=== PATIENT | female | born 1980 | race Caucasian/White ===

== ENCOUNTER 2018-09-20 19:56 | Emergency (ER) | payer OTHER ==
[~2018-09-20] VITALS: Ht 165.1 cm; Wt 90.7 kg
[2018-09-20] MEDS ORDERED: IV NORMAL SALINE 1000ML BAG 1,000 ML IV SCH (20:13)
[2018-09-20] MEDS ORDERED: ADENOSINE 6 MG/2 ML VIAL. IV ONE ×2 (20:13→20:45)
[2018-09-20] MEDS ORDERED: IV NORMAL SALINE 1000ML BAG 1,000 ML IV ONE (20:20)
[2018-09-20 20:24] LABS: BASO # 0.1 x10^3/uL (0.0-0.2); BASO % 1 % (0-3); EOS # 0.2 x10^3/uL (0.0-0.7); EOS % 2 % (0-3); HEMOGLOBIN 12.4 g/dL (12.0-15.5); LYMPH # 1.8 x10^3/uL (1.0-4.8); LYMPH % 21 % (24-48); MEAN CORPUSCULAR HEMOGLOBIN 29 pg (25-35); MEAN CORPUSCULAR HGB CONC 33 g/dL (31-37); MEAN CORPUSCULAR VOLUME 88 fL (79-100); MONO # 0.4 x10^3/uL (0.0-1.1); MONO % 4 % (0-9); NEUT # 6.3 x10^3uL (1.8-7.7); NEUT % 72 % (31-73); PLATELET COUNT 299 x10^3/uL (140-400); RED BLOOD COUNT 4.33 x10^6/uL (3.50-5.40); RED CELL DISTRIBUTION WIDTH 14.2 % (11.5-14.5); WHITE BLOOD COUNT 8.7 x10^3/uL (4.0-11.0)
[2018-09-20 20:34] LABS: CALCIUM 9.1 mg/dL (8.5-10.1); CREATININE 0.8 mg/dL (0.6-1.0); GFR 79.4; POTASSIUM 4.6 mmol/L (3.5-5.1)
[2018-09-20 20:41] LABS: ALBUMIN 3.9 g/dL (3.4-5.0); ALBUMIN/GLOBULIN RATIO 1.1 (1.0-1.7); MAGNESIUM 2.1 mg/dL (1.8-2.4); TOTAL BILIRUBIN 0.2 mg/dL (0.2-1.0); TOTAL PROTEIN 7.4 g/dL (6.4-8.2)
--- NOTE | 2018-09-20 21:58 | PHYS DOC ---
Past Medical History Past Medical History: Other Additional Past Medical Histor: SVT Alcohol Use: None Drug Use: None Social History Narrative: HX METH USE Adult General Chief Complaint Chief Complaint: RAPID HEART RATE HPI HPI Patient is a 38-year-old female who presents via EMS from longterm with report of SVT. Patient was noted to longterm to have rapid heart rate and was given a dose of metoprolol and when heart rate did not respond, she was given a second dose of her metoprolol. Patient's heart rate has not improved but blood pressure had dropped to the 70s systolic. EMS had arrived and did give patient one dose of Adenocard as well as IV fluids. Patient did not convert with the Adenocard and due to symptoms that patient suffered from the Adenocard had refused a second dose by EMS. Upon arrival, patient does admit to feeling a little bit short of breath and lightheaded. She denies any chest pain. Review of Systems Review of Systems Constitutional: Denies fever or chills [] Respiratory: Admits to shortness of breath [] Cardiovascular: Positive palpitations[] GI: Denies abdominal pain, nausea, vomiting, bloody stools or diarrhea [] Integument: Denies rash or skin lesions [] Neurologic: Denies headache, focal weakness or sensory changes [] All other systems were reviewed and found to be within normal limits, except as documented in this note. Current Medications Current Medications Current Medications Medications (Trade) Dose Ordered Sig/Jethro Start Time Stop Time Status Last Admin Dose Admin Adenosine (Adenocard) 12 mg 1X ONCE 09/20/18 20:45 09/20/18 20:46 DC 09/20/18 20:27 12 MG Sodium Chloride 1,000 ml @ 1,000 mls/hr 1X ONCE 09/20/18 20:20 09/20/18 21:19 DC 09/20/18 20:20 1,000 MLS/HR Allergies Allergies Allergies Coded Allergies Type Severity Reaction Last Updated Verified Penicillins Allergy Intermediate HIVES 09/20/18 Yes Physical Exam Physical Exam Constitutional: Well developed, well nourished, no acute distress, non-toxic appearance. [] HENT: Normocephalic, atraumatic, bilateral external ears normal, oropharynx moist, no oral exudates, nose normal. [] Eyes: PERRLA, EOMI, conjunctiva normal, no discharge. [] Neck: Normal range of motion, no tenderness, supple, no stridor. [] Cardiovascular: Markedly tachycardic rate with regular rhythm[] Lungs & Thorax: Bilateral breath sounds clear to auscultation [] Abdomen: Bowel sounds normal, soft, no tenderness. [] Skin: Warm, dry, no erythema, no rash. [] Extremities: No tenderness, no cyanosis, no clubbing, ROM intact, no edema. [] Neurologic: Alert and oriented X 3, no focal deficits noted. [] Current Patient Data Vital Signs Vital Signs Date Time Temp Pulse Resp B/P (MAP) Pulse Ox O2 Delivery O2 Flow Rate FiO2 09/20/18 21:06 88 12 86/66 (73) 98 Nasal Cannula 2.0 09/20/18 19:56 98.2 98.2 Lab Values Laboratory Tests Test 09/20/18 20:15 White Blood Count 8.7 x10^3/uL (4.0-11.0) Red Blood Count 4.33 x10^6/uL (3.50-5.40) Hemoglobin 12.4 g/dL (12.0-15.5) Hematocrit 38.0 % (36.0-47.0) Mean Corpuscular Volume 88 fL (79-100) Mean Corpuscular Hemoglobin 29 pg (25-35) Mean Corpuscular Hemoglobin Concent 33 g/dL (31-37) Red Cell Distribution Width 14.2 % (11.5-14.5) Platelet Count 299 x10^3/uL (140-400) Neutrophils (%) (Auto) 72 % (31-73) Lymphocytes (%) (Auto) 21 % (24-48) L Monocytes (%) (Auto) 4 % (0-9) Eosinophils (%) (Auto) 2 % (0-3) Basophils (%) (Auto) 1 % (0-3) Neutrophils # (Auto) 6.3 x10^3uL (1.8-7.7) Lymphocytes # (Auto) 1.8 x10^3/uL (1.0-4.8) Monocytes # (Auto) 0.4 x10^3/uL (0.0-1.1) Eosinophils # (Auto) 0.2 x10^3/uL (0.0-0.7) Basophils # (Auto) 0.1 x10^3/uL (0.0-0.2) Sodium Level 141 mmol/L (136-145) Potassium Level 4.6 mmol/L (3.5-5.1) Chloride Level 103 mmol/L (98-107) Carbon Dioxide Level 29 mmol/L (21-32) Anion Gap 9 (6-14) Blood Urea Nitrogen 14 mg/dL (7-20) Creatinine 0.8 mg/dL (0.6-1.0) Estimated GFR (Cockcroft-Gault) 79.4 BUN/Creatinine Ratio 18 (6-20) Glucose Level 114 mg/dL (70-99) H Calcium Level 9.1 mg/dL (8.5-10.1) Magnesium Level 2.1 mg/dL (1.8-2.4) Total Bilirubin 0.2 mg/dL (0.2-1.0) Aspartate Amino Transferase (AST) 20 U/L (15-37) Alanine Aminotransferase (ALT) 21 U/L (14-59) Alkaline Phosphatase 94 U/L (46-116) Troponin I Quantitative < 0.017 ng/mL (0.000-0.055) SY-Vro-X-Type Natriuretic Peptide 161 pg/mL (0-124) H Total Protein 7.4 g/dL (6.4-8.2) Albumin 3.9 g/dL (3.4-5.0) Albumin/Globulin Ratio 1.1 (1.0-1.7) Laboratory Tests 09/20/18 20:15 Laboratory Tests 09/20/18 20:15 EKG EKG [] Interpretation Time: EKG demonstrates SVT with rate of 157. Radiology/Procedures Radiology/Procedures [] Course & Med Decision Making Course & Med Decision Making Pertinent Labs and Imaging studies reviewed. (See chart for details) Patient moved to room upon arrival was evaluated by your medical staff after which blood work was drawn. Patient given IV fluid bolus for low blood pressure. Discussion of treatment options was had with patient and patient did agree to second dose of Adenocard. Patient was given 12 mg Adenocard and converted to a sinus rhythm. Patient has continued to do well throughout the remainder of stay. Patient's blood work has returned fairly unremarkable. Dragon Disclaimer Dragon Disclaimer This electronic medical record was generated, in whole or in part, using a voice recognition dictation system. Departure Departure Impression: Primary Impression: Supraventricular tachycardia Disposition: 01 HOME, SELF-CARE Condition: STABLE Referrals: NO PCP (PCP) Patient Instructions: Supraventricular Tachycardia ROSALIE DAVIS Jr. DO Sep 20, 2018 21:58
[2018-09-20 22:00] VITALS: BP 100/67
--- NOTE | 2018-09-21 08:25 | RAD ---
EXAM: CHEST 1 VIEW History: Palpitations COMPARISON: None available. TECHNIQUE: Single portable radiograph of the chest FINDINGS: The cardiac silhouette is unremarkable. The lungs are clear bilaterally. The costophrenic sulci are clear and well demarcated. IMPRESSION: No radiographic evidence of an acute cardiopulmonary process. Electronically signed by: Von Zamora MD (09/21/2018 8:23 AM) [id number]
--- NOTE | 2018-09-21 08:46 | EKG ---
[facility] [address] [place] [address] Test Date: 2018-09-20 Test Time: 20:07:59 Pat Name: AILEEN MAURER Department: Room: Gender: F [employer]: : [id number] Requested By: ROSALIE DAVIS Order Number: [id number] Reading MD: Filippo Hernandez MD Measurements Intervals [place] Rate: 157 P: AR: QRS: 67 QRSD: 76 T: 29 QT: 288 QTc: 472 Interpretive Statements SUPRAVENTRICULAR TACHYCARDIA NON-SPECIFIC ST/T CHANGES Electronically Signed On 09-21-2018 17:30:11 CDT by Filippo Hernandez MD
== END 2018-09-20 22:15 | disposition home or self-care (01) ==
LOC: ER 19:56 → EEVIPCON 19:56 → ER 22:15
DX: I47.1 Supraventricular tachycardia (principal); R42 Dizziness and giddiness; Z88.0 Allergy status to penicillin
CPT/HCPCS: 36415; 71045; 80053; 83735; 83880; 84484; 85025; 93005; 96361; 96374; 99284; J0153; J7030